=== PATIENT | female | born 1960 | race Caucasian/White ===

== ENCOUNTER → 2018-11-19 | Outpatient (CLI) | payer BC | LOC: FIMAGING 08:07 | PROVIDERS: ATTEND Family Medicine | DX: Z12.31 Encounter for screening mammogram for malignant neoplasm of breast (principal) ==

== ENCOUNTER → 2018-12-09 | Outpatient (CLI) | payer BC | LOC: FIMAGING 08:17 | PROVIDERS: ATTEND Family Medicine | DX: N60.32 Fibrosclerosis of left breast (principal) ==